=== PATIENT | male | born 1965 | race Caucasian/White ===

== ENCOUNTER 2017-08-23 04:20 | Inpatient (IN) | payer MEDICAID ==
[~2017-08-23] VITALS: Ht 177.8 cm; Wt 82.2 kg
[~2017-08-23 04:20] MED LIST: INSU100C SQ-INSULIN; INSU100C5 SQ-INSULIN; INSU300I SQ
[2017-08-23] MEDS ORDERED: SODIUM CHLORIDE FLUSH 10ML SYR IVF ONE (05:00)
[2017-08-23] MEDS ORDERED: SODIUM CHLORIDE 0.9% 1,000ML IVBOLUS ONE ×2 (05:00→06:00)
[2017-08-23 05:05] LABS: DAU SCREEN DISCLAIMER
[2017-08-23 05:14] LABS: PH, VENOUS 7.398 pH (7.320-7.420)
[2017-08-23 05:17] LABS: HEMATOCRIT 44.2 % (39.2-51.8); HEMOGLOBIN 14.3 g/dL (13.7-18.0)
[2017-08-23 05:30] LABS: BLOOD UREA NITROGEN 62 mg/dL (7-18)
[2017-08-23 05:35] LABS: ASPARTATE AMINO TRANSFERASE 14 U/L (15-37)
[2017-08-23] MEDS ORDERED: REGULAR INSULIN 62.5 UNITS in SODIUM CHLORIDE 0.9% 249.375 ML IV PRN ×2 (05:43→13:00)
[2017-08-23 06:08] LABS: IS PT STATUS REG ER OR PRE ER? YES
[2017-08-23] MEDS ORDERED: LORazepam 2 MG/ML, 1ML ONE ×2 (06:24→08:25)
[2017-08-23] MEDS ORDERED: SODIUM CHLORIDE 0.9% 1,000 ML IV ONE (07:15)
[2017-08-23] MEDS ORDERED: LORazepam 2 MG/ML, 1ML IVPush ONE ×2 (07:30→09:00)
[2017-08-23] MEDS ORDERED: SODIUM CHLORIDE FLUSH 10ML SYR IVF PRN (08:00)
[2017-08-23 08:05] LABS: BLOOD UREA NITROGEN 59 mg/dL (7-18)
[2017-08-23 08:55] LABS: PROTIME 10.5 Seconds (9.6-11.5)
[2017-08-23] MEDS ORDERED: ENOXAPARIN 40 MG/0.4 ML SQ SCH (10:30)
[2017-08-23] MEDS ORDERED: ONDANSETRON 2MG/ML, 2ML IVPush PRN (10:30)
[2017-08-23] MEDS ORDERED: POLYETHYLENE GLYCOL 17 GM PACKET PO PRN (10:30)
[2017-08-23] MEDS ORDERED: LABETALOL 5MG/ML, 20ML IVPush PRN (10:30)
[2017-08-23] MEDS ORDERED: ACETAMINOPHEN 325 MG TABLET PO PRN (10:30)
[2017-08-23] MEDS ORDERED: TEMAZEPAM 15 MG CAPSULE PO PRN (10:30)
[2017-08-23] MEDS ORDERED: ZIPRASIDONE 20 MG INJ IM ONE (10:39)
[2017-08-23] MEDS ORDERED: ENOXAPARIN 40 MG/0.4 ML ONE (10:40)
[2017-08-23] MEDS: ZIPRASIDONE 20 MG INJ IM PRN ×2 (10:51→13:57)
[2017-08-23] MEDS: SODIUM CHLORIDE 0.9% 1,000 ML IV SCH ×2 (10:52→13:21)
[2017-08-23 11:05] LABS: BLOOD UREA NITROGEN 49 mg/dL (7-18)
[2017-08-23 13:11] VITALS: BP 122/69
[2017-08-23 15:51] LABS: BLOOD UREA NITROGEN 43 mg/dL (7-18)
[2017-08-23] MEDS ORDERED: SODIUM CHLORIDE 0.45% 1,000 ML IV SCH (16:30)
[2017-08-23] MEDS: INSULIN ASPART 100 UNITS/ML, PEN SQ-INSULIN SCH ×2 (16:32→21:05)
[2017-08-23] MEDS: INSULIN DETEMIR 100 UNITS/ML, PEN SQ-INSULIN SCH (16:33)
[2017-08-23] MEDS: SODIUM CHLORIDE 0.45% 1,000 ML IV SCH ×2 (16:40→23:00)
[2017-08-23 20:44] LABS: BLOOD UREA NITROGEN 37 mg/dL (7-18)
[2017-08-24 00:49] LABS: BLOOD UREA NITROGEN 33 mg/dL (7-18)
[2017-08-24 04:20] VITALS: BP 116/66
[2017-08-24 04:59] LABS: BLOOD UREA NITROGEN 28 mg/dL (7-18)
[2017-08-24] MEDS: INSULIN DETEMIR 100 UNITS/ML, PEN SQ-INSULIN SCH (05:00)
[2017-08-24 05:10] LABS: ASPARTATE AMINO TRANSFERASE 21 U/L (15-37)
[2017-08-24] MEDS ORDERED: SODIUM PHOSPHATE 20 MMOL in SODIUM CHLORIDE 0.9% 500 ML IV ONE (07:30)
[2017-08-24] MEDS ORDERED: SENNA/DOCUSATE TABLET PO SCH (09:00)
== END 2017-08-24 06:00 | disposition left against medical advice (07) | DRG 682 ==
LOC: ED 05:38 → EDIP 07:15 → CCU 12:39
PROVIDERS: ADMIT Internal Medicine; ATTEND Internal Medicine
PROC: 02HV33Z Insertion of Infusion Device into Superior Vena Cava, Percutaneous Approach (ICD-10-PCS; principal; 2017-08-23)
PROC: B548ZZA Ultrasonography of Superior Vena Cava, Guidance (ICD-10-PCS; 2017-08-23)
PROC: 0T9B70Z Drainage of Bladder with Drainage Device, Via Natural or Artificial Opening (ICD-10-PCS; 2017-08-23)
DX: N17.9 Acute kidney failure, unspecified (principal); E11.00 Type 2 diabetes mellitus with hyperosmolarity without nonketotic hyperglycemic-hyperosmolar coma (NKHHC); G93.41 Metabolic encephalopathy; R56.9 Unspecified convulsions; R65.10 Systemic inflammatory response syndrome (SIRS) of non-infectious origin without acute organ dysfunction; E87.1 Hypo-osmolality and hyponatremia; N30.90 Cystitis, unspecified without hematuria; E87.5 Hyperkalemia; B96.20 Unspecified Escherichia coli [E. coli] as the cause of diseases classified elsewhere; R79.89 Other specified abnormal findings of blood chemistry; F17.200 Nicotine dependence, unspecified, uncomplicated; F19.959 Other psychoactive substance use, unspecified with psychoactive substance-induced psychotic disorder, unspecified; Z78.1 Physical restraint status; Z88.0 Allergy status to penicillin; Z79.4 Long term (current) use of insulin
CPT/HCPCS: 36415; 70450; 71010; 74022; 74176; 80048; 80053; 80061; 80307; 81001; 82010; 82040; 82140; 82550; 82803; 82962; 83036; 83605; 83690; 83735; 83930; 84100; 84145; 84443; 84484; 85025; 85049; 85379; 85384; 85610; 85730; 87040; 87077; 87081; 87086; 87186; 93005; 96361; 96372; 96374; 96375; J1650; J1815; J3486; G0479; J2060; J7030

== ENCOUNTER 2017-09-17 11:59 | Inpatient (IN) | payer MEDICAID ==
[~2017-09-17] VITALS: Ht 177.8 cm; Wt 80.6 kg
[2017-09-17] MEDS ORDERED: NALOXONE 1 MG/ML, 2ML IVPush ONE (12:30)
[2017-09-17] MEDS ORDERED: SODIUM CHLORIDE 0.9% 1,000ML IVBOLUS ONE (12:30)
[2017-09-17] MEDS ORDERED: LORazepam 2 MG/ML, 1ML ONE (12:47)
[2017-09-17 12:52] LABS: HEMATOCRIT 42.2 % (39.2-51.8); HEMOGLOBIN 14.3 g/dL (13.7-18.0); WHITE BLOOD COUNT 16.6 x10^3/uL (3.4-10)
[2017-09-17] MEDS ORDERED: LORazepam 2 MG/ML, 1ML IVPush ONE (13:00)
[2017-09-17 13:02] LABS: ASPARTATE AMINO TRANSFERASE 22 U/L (15-37); BLOOD UREA NITROGEN 19 mg/dL (7-18)
[2017-09-17 13:05] LABS: ACETAMINOPHEN < 2 mcg/mL (10-30)
[2017-09-17] MEDS: SODIUM CHLORIDE 0.9% 1,000 ML IV ONE ×2 (14:00→14:43)
[2017-09-17] MEDS: PROPOFOL 100 ML IV PRN ×2 (14:45→19:04)
[2017-09-17 15:24] LABS: ABG COLLECTION SITE LEFT RADIAL; COLLATERAL CIRCULATION TESTING NORMAL
[2017-09-17] MEDS ORDERED: SODIUM CHLORIDE 0.9% 1,000 ML IV SCH (15:30)
[2017-09-17] MEDS: ALBUTEROL/IPRATROPIUM 2.5MG/0.5MG, 3 ML INLINE SCH ×3 (15:30→21:50)
[2017-09-17] MEDS ORDERED: PHARMACY MAY ADJ FOR RENAL FX MC SCH (15:30)
[2017-09-17] MEDS ORDERED: ACETAMINOPHEN 650 MG/20.3 ML UDC NG PRN (15:30)
[2017-09-17] MEDS ORDERED: LIDOCAINE-MPF 1%, 2ML ENDO PRN (15:30)
[2017-09-17 15:35] LABS: DAU SCREEN DISCLAIMER
[2017-09-17] MEDS ORDERED: ACETAMINOPHEN 650 MG SUPP ONE (15:35)
[2017-09-17] MEDS ORDERED: ACETAMINOPHEN 650 MG SUPP PR ONE (16:00)
[2017-09-17] MEDS ORDERED: PROPOFOL 10 MG/ML, 100ML IV ONE (16:00)
[2017-09-17] MEDS ORDERED: ONDANSETRON 2MG/ML, 2ML IVPush PRN (16:00)
[2017-09-17] MEDS ORDERED: SUCCINYLCHOLINE 20 MG/ML, 10ML ONE (16:00)
[2017-09-17] MEDS ORDERED: ETOMIDATE 20 MG/10 ML ONE (16:00)
[2017-09-17] MEDS ORDERED: CEFTRIAXONE PMX 1GM/50ML 50 ML ONE (16:25)
[2017-09-17] MEDS: CEFTRIAXONE PMX 1GM/50ML 50 ML IV SCH (16:29)
[2017-09-17] MEDS ORDERED: PROPOFOL 100 ML IV PRN (16:30)
[2017-09-17] MEDS ORDERED: LEVETIRACETAM 500 MG TABLET PO ONE (16:30)
[2017-09-17] MEDS ORDERED: DEXTROSE 50%, 50ML VIAL ONE ×3 (16:59→19:54)
[2017-09-17] MEDS: DEXTROSE 50%, 50ML SYRINGE IVPush PRN ×6 (17:15→23:58)
[2017-09-17] MEDS: LEVETIRACETAM 1,000 MG in SODIUM CHLORIDE 0.9% 100 ML IV SCH (17:30)
[2017-09-17] MEDS ORDERED: GLUCAGON 1 MG IM PRN (17:30)
[2017-09-17] MEDS ORDERED: DEXTROSE 4 GM TAB.CHEW PO PRN (17:30)
[2017-09-17] MEDS ORDERED: LEVETIRACETAM 1,000 MG in SODIUM CHLORIDE 0.9% 100 ML IV ONE (17:30)
[2017-09-17] MEDS: DOXYCYCLINE 100 MG in DEXTROSE 5% 250 ML IV SCH (17:51)
[2017-09-17] MEDS ORDERED: VANCOMYCIN PER PHARMACY MC PRN (18:00)
[2017-09-17 18:23] LABS: ABG COLLECTION SITE RIGHT BRACHIAL
[2017-09-17] MEDS ORDERED: PHARMACOKINETIC MONITORING MC PRN (18:30)
[2017-09-17] MEDS ORDERED: PHARMACOKINETIC CONSULTATION MC ONE (18:30)
[2017-09-17] MEDS: VANCOMYCIN 1,700 MG in SODIUM CHLORIDE 0.9% 250 ML IV SCH (20:21)
[2017-09-17] MEDS ORDERED: D5%-0.9% NACL 1,000 ML IV SCH (20:30)
[2017-09-17] MEDS: SODIUM CHLORIDE FLUSH 10ML SYR IVF SCH (20:32)
[2017-09-17] MEDS ORDERED: SODIUM CHLORIDE IV SCH (21:30)
[2017-09-17] MEDS ORDERED: DEXTROSE IV SCH (21:30)
[2017-09-18] MEDS: PROPOFOL 100 ML IV PRN ×5 (00:12→22:07)
[2017-09-18] MEDS: ALBUTEROL/IPRATROPIUM 2.5MG/0.5MG, 3 ML INLINE SCH ×6 (01:56→21:15)
[2017-09-18] MEDS: DEXTROSE 50%, 50ML SYRINGE IVPush PRN ×4 (02:06→22:39)
[2017-09-18] MEDS: DOXYCYCLINE 100 MG in DEXTROSE 5% 250 ML IV SCH ×2 (03:44→16:36)
[2017-09-18 04:00] VITALS: BP 100/62
[2017-09-18 04:36] LABS: ABG COLLECTION SITE LEFT RADIAL; COLLATERAL CIRCULATION TESTING NORMAL
[2017-09-18] MEDS: LEVETIRACETAM 1,000 MG in SODIUM CHLORIDE 0.9% 100 ML IV SCH ×2 (04:50→18:06)
[2017-09-18 04:51] LABS: ASPARTATE AMINO TRANSFERASE 36 U/L (15-37); BLOOD UREA NITROGEN 13 mg/dL (7-18)
[2017-09-18 05:05] LABS: HEMATOCRIT 37.4 % (39.2-51.8); HEMOGLOBIN 12.6 g/dL (13.7-18.0); WHITE BLOOD COUNT 11.3 x10^3/uL (3.4-10)
[2017-09-18] MEDS ORDERED: MAGNESIUM SULFATE 4 GM in SODIUM CHLORIDE 0.9% 100 ML IV ONE (06:30)
[2017-09-18] MEDS ORDERED: POTASSIUM CHLORIDE 40 MEQ in SODIUM CHLORIDE 0.9% 500 ML IV ONE (06:30)
[2017-09-18 06:33] VITALS: BP 128/69
[2017-09-18] MEDS ORDERED: POTASSIUM CHLORIDE 20 MEQ TAB.ER.PRT PO SCH (08:00)
[2017-09-18] MEDS ORDERED: VECURONIUM 10 MG IV PRN (08:30)
[2017-09-18] MEDS: PANTOPRAZOLE 40 MG IV IV SCH (09:34)
[2017-09-18] MEDS: SODIUM CHLORIDE FLUSH 10ML SYR IVF SCH ×2 (09:34→21:37)
[2017-09-18] MEDS: POTASSIUM CHLORIDE 10% 40 MEQ/30 ML UDC PO SCH ×2 (09:34→21:37)
[2017-09-18] MEDS: SODIUM CHLORIDE IV SCH ×2 (10:29→21:40)
[2017-09-18] MEDS: DEXTROSE IV SCH ×2 (10:29→21:40)
[2017-09-18] MEDS ORDERED: GADOBUTROL 7.5 MMOL/7.5 ML PFS ONE (12:28)
[2017-09-18] MEDS: VANCOMYCIN 1,700 MG in SODIUM CHLORIDE 0.9% 250 ML IV SCH (13:55)
[2017-09-18] MEDS: CEFTRIAXONE PMX 1GM/50ML 50 ML IV SCH (15:39)
[2017-09-18] MEDS ORDERED: SODIUM CHLORIDE IV SCH (21:30)
[2017-09-18] MEDS ORDERED: DEXTROSE IV SCH (21:30)
[2017-09-19] MEDS: PROPOFOL 100 ML IV PRN ×6 (01:18→23:44)
[2017-09-19] MEDS: ALBUTEROL/IPRATROPIUM 2.5MG/0.5MG, 3 ML INLINE SCH ×6 (02:00→22:00)
[2017-09-19] MEDS: DOXYCYCLINE 100 MG in DEXTROSE 5% 250 ML IV SCH ×2 (04:27→15:51)
[2017-09-19 04:44] LABS: ABG COLLECTION SITE RIGHT RADIAL; COLLATERAL CIRCULATION TESTING NORMAL
[2017-09-19 04:57] LABS: BLOOD UREA NITROGEN 7 mg/dL (7-18)
[2017-09-19 05:38] VITALS: BP 121/62
[2017-09-19] MEDS: LEVETIRACETAM 1,000 MG in SODIUM CHLORIDE 0.9% 100 ML IV SCH ×2 (05:52→18:40)
[2017-09-19 08:13] LABS: BLOOD UREA NITROGEN 6 mg/dL (7-18)
[2017-09-19] MEDS: VANCOMYCIN 1,700 MG in SODIUM CHLORIDE 0.9% 250 ML IV SCH (08:36)
[2017-09-19] MEDS: PANTOPRAZOLE 40 MG IV IV SCH (08:36)
[2017-09-19] MEDS: POTASSIUM CHLORIDE 10% 40 MEQ/30 ML UDC PO SCH ×2 (08:37→21:14)
[2017-09-19] MEDS: SODIUM CHLORIDE FLUSH 10ML SYR IVF SCH ×2 (08:37→21:14)
[2017-09-19] MEDS: DEXTROSE IV SCH ×2 (08:38→19:39)
[2017-09-19] MEDS: SODIUM CHLORIDE IV SCH ×2 (08:38→19:39)
[2017-09-19] MEDS: CEFTRIAXONE PMX 1GM/50ML 50 ML IV SCH (15:52)
[2017-09-19] MEDS: THIAMINE 100 MG in SODIUM CHLORIDE 0.9% 50 ML IV SCH (18:17)
[2017-09-20] MEDS: ALBUTEROL/IPRATROPIUM 2.5MG/0.5MG, 3 ML INLINE SCH ×6 (02:00→22:45)
[2017-09-20] MEDS: PROPOFOL 100 ML IV PRN ×5 (03:10→22:39)
[2017-09-20 04:00] VITALS: BP 98/52
[2017-09-20] MEDS: DEXTROSE IV SCH ×2 (04:24→13:30)
[2017-09-20] MEDS: SODIUM CHLORIDE IV SCH ×2 (04:24→13:30)
[2017-09-20] MEDS: DOXYCYCLINE 100 MG in DEXTROSE 5% 250 ML IV SCH ×2 (04:25→16:46)
[2017-09-20 04:31] LABS: HEMATOCRIT 29.9 % (39.2-51.8); HEMOGLOBIN 10.1 g/dL (13.7-18.0); WHITE BLOOD COUNT 10.9 x10^3/uL (3.4-10)
[2017-09-20 04:34] LABS: ABG COLLECTION SITE LEFT RADIAL; COLLATERAL CIRCULATION TESTING NORMAL
[2017-09-20 04:42] LABS: BLOOD UREA NITROGEN 7 mg/dL (7-18)
[2017-09-20 04:46] LABS: ASPARTATE AMINO TRANSFERASE 12 U/L (15-37)
[2017-09-20] MEDS: LEVETIRACETAM 1,000 MG in SODIUM CHLORIDE 0.9% 100 ML IV SCH ×2 (05:46→18:21)
[2017-09-20] MEDS ORDERED: BISACODYL 10 MG SUPP PR PRN (08:30)
[2017-09-20] MEDS ORDERED: LACTULOSE 20 GM/30 ML UDC PO PRN (08:30)
[2017-09-20] MEDS: PANTOPRAZOLE 40 MG IV IV SCH (09:43)
[2017-09-20] MEDS: POTASSIUM CHLORIDE 10% 40 MEQ/30 ML UDC PO SCH ×2 (09:43→20:30)
[2017-09-20] MEDS: DOCUSATE 50 MG/5 ML, 10ML UDC NG SCH (09:45)
[2017-09-20] MEDS: SODIUM CHLORIDE FLUSH 10ML SYR IVF SCH ×2 (09:45→20:30)
[2017-09-20] MEDS ORDERED: SODIUM CHLORIDE 0.9% 1,000ML IVBOLUS ONE (12:30)
[2017-09-20] MEDS: THIAMINE 100 MG in SODIUM CHLORIDE 0.9% 50 ML IV SCH (14:14)
[2017-09-20] MEDS: CEFTRIAXONE PMX 1GM/50ML 50 ML IV SCH (15:59)
[2017-09-20] MEDS: INSULIN ASPART 100 UNITS/ML, PEN SQ-INSULIN SCH ×2 (16:21→20:33)
[2017-09-20] MEDS ORDERED: SODIUM CHLORIDE 0.9% 500 ML IV SCH (19:30)
[2017-09-20] MEDS: SENNOSIDES 8.8 MG/5 ML ORAL SOL NG SCH (20:30)
[2017-09-20] MEDS: SENNA/DOCUSATE TABLET PO SCH (20:31)
[2017-09-21] MEDS: ALBUTEROL/IPRATROPIUM 2.5MG/0.5MG, 3 ML INLINE SCH ×2 (02:10→07:10)
[2017-09-21] MEDS: PROPOFOL 100 ML IV PRN ×2 (02:30→06:12)
[2017-09-21 04:05] VITALS: BP 102/59
[2017-09-21] MEDS: DOXYCYCLINE 100 MG in DEXTROSE 5% 250 ML IV SCH ×2 (04:09→17:08)
[2017-09-21 04:49] LABS: ABG COLLECTION SITE RIGHT RADIAL; COLLATERAL CIRCULATION TESTING NORMAL
[2017-09-21 04:55] LABS: HEMATOCRIT 30.6 % (39.2-51.8); HEMOGLOBIN 10.3 g/dL (13.7-18.0); WHITE BLOOD COUNT 7.3 x10^3/uL (3.4-10)
[2017-09-21 05:03] LABS: BLOOD UREA NITROGEN 9 mg/dL (7-18)
[2017-09-21] MEDS: LEVETIRACETAM 1,000 MG in SODIUM CHLORIDE 0.9% 100 ML IV SCH ×2 (05:31→18:31)
[2017-09-21] MEDS: INSULIN ASPART 100 UNITS/ML, PEN SQ-INSULIN SCH ×4 (05:39→20:49)
[2017-09-21] MEDS: POTASSIUM CHLORIDE 10% 40 MEQ/30 ML UDC PO SCH (08:06)
[2017-09-21] MEDS: SODIUM CHLORIDE FLUSH 10ML SYR IVF SCH ×2 (08:06→20:46)
[2017-09-21] MEDS: DOCUSATE 50 MG/5 ML, 10ML UDC NG SCH (08:06)
[2017-09-21] MEDS: PANTOPRAZOLE 40 MG IV IV SCH (08:06)
[2017-09-21] MEDS: THIAMINE 100 MG in SODIUM CHLORIDE 0.9% 50 ML IV SCH (14:25)
[2017-09-21] MEDS: CEFTRIAXONE PMX 1GM/50ML 50 ML IV SCH (16:43)
[2017-09-21] MEDS: SENNOSIDES 8.8 MG/5 ML ORAL SOL NG SCH (20:41)
[2017-09-21] MEDS: SENNA/DOCUSATE TABLET PO SCH (20:41)
[2017-09-22] MEDS: DOXYCYCLINE 100 MG in DEXTROSE 5% 250 ML IV SCH ×2 (03:24→16:15)
[2017-09-22 04:02] VITALS: BP 120/72
[2017-09-22 04:24] LABS: ABG COLLECTION SITE RIGHT RADIAL; COLLATERAL CIRCULATION TESTING NORMAL
[2017-09-22 04:30] LABS: HEMATOCRIT 31.1 % (39.2-51.8); HEMOGLOBIN 10.6 g/dL (13.7-18.0); WHITE BLOOD COUNT 6.9 x10^3/uL (3.4-10)
[2017-09-22 04:44] LABS: BLOOD UREA NITROGEN 8 mg/dL (7-18)
[2017-09-22] MEDS: LEVETIRACETAM 1,000 MG in SODIUM CHLORIDE 0.9% 100 ML IV SCH ×2 (05:33→17:45)
[2017-09-22] MEDS: INSULIN ASPART 100 UNITS/ML, PEN SQ-INSULIN SCH ×4 (05:35→20:53)
[2017-09-22] MEDS: PANTOPRAZOLE 40 MG IV IV SCH (07:45)
[2017-09-22] MEDS: DOCUSATE 50 MG/5 ML, 10ML UDC NG SCH (07:45)
[2017-09-22] MEDS: SODIUM CHLORIDE FLUSH 10ML SYR IVF SCH ×2 (07:45→20:37)
[2017-09-22] MEDS ORDERED: MAGNESIUM SULFATE PMX 4GM/100M 100 ML IV ONE (10:00)
[2017-09-22] MEDS: THIAMINE 100 MG in SODIUM CHLORIDE 0.9% 50 ML IV SCH (15:32)
[2017-09-22] MEDS ORDERED: PHARMACY MAY ADJ FOR RENAL FX MC SCH (16:00)
[2017-09-22] MEDS ORDERED: ONDANSETRON 2MG/ML, 2ML IVPush PRN (16:00)
[2017-09-22] MEDS ORDERED: GLUCAGON 1 MG IM PRN (16:00)
[2017-09-22] MEDS ORDERED: DEXTROSE 4 GM TAB.CHEW PO PRN (16:00)
[2017-09-22] MEDS ORDERED: ACETAMINOPHEN 650 MG/20.3 ML UDC NG PRN (16:00)
[2017-09-22] MEDS ORDERED: DEXTROSE 50%, 50ML SYRINGE IVPush PRN (16:00)
[2017-09-22 20:00] VITALS: BP 106/67
[2017-09-23 02:00] VITALS: BP 95/48
[2017-09-23] MEDS: DOXYCYCLINE 100 MG in DEXTROSE 5% 250 ML IV SCH ×2 (04:49→17:04)
[2017-09-23 05:36] LABS: HEMATOCRIT 29.7 % (39.2-51.8); HEMOGLOBIN 10.2 g/dL (13.7-18.0); WHITE BLOOD COUNT 8.1 x10^3/uL (3.4-10)
[2017-09-23 05:47] LABS: BLOOD UREA NITROGEN 9 mg/dL (7-18)
[2017-09-23] MEDS: LEVETIRACETAM 1,000 MG in SODIUM CHLORIDE 0.9% 100 ML IV SCH ×2 (05:51→17:04)
[2017-09-23 06:37] VITALS: BP 126/76
[2017-09-23] MEDS: PANTOPRAZOLE 40 MG IV IV SCH (07:54)
[2017-09-23] MEDS: INSULIN ASPART 100 UNITS/ML, PEN SQ-INSULIN SCH ×4 (07:54→20:45)
[2017-09-23] MEDS: DOCUSATE 50 MG/5 ML, 10ML UDC NG SCH (07:54)
[2017-09-23] MEDS: SODIUM CHLORIDE FLUSH 10ML SYR IVF SCH ×2 (07:54→20:47)
[2017-09-23] MEDS ORDERED: ARTIFICIAL TEARS OPHTH SOLN 15ML EACHEYE PRN (12:00)
[2017-09-23] MEDS: THIAMINE 100 MG in SODIUM CHLORIDE 0.9% 50 ML IV SCH (14:35)
[2017-09-23 15:51] VITALS: BP 113/71
[2017-09-23 20:12] VITALS: BP 128/79
[2017-09-24 03:04] VITALS: BP 127/74
[2017-09-24] MEDS: DOXYCYCLINE 100 MG in DEXTROSE 5% 250 ML IV SCH (04:11)
[2017-09-24 05:33] LABS: HEMATOCRIT 31.3 % (39.2-51.8); HEMOGLOBIN 10.6 g/dL (13.7-18.0); WHITE BLOOD COUNT 8.4 x10^3/uL (3.4-10)
[2017-09-24 05:51] LABS: BLOOD UREA NITROGEN 6 mg/dL (7-18)
[2017-09-24] MEDS: LEVETIRACETAM 1,000 MG in SODIUM CHLORIDE 0.9% 100 ML IV SCH (06:22)
[2017-09-24] MEDS: DOCUSATE 50 MG/5 ML, 10ML UDC NG SCH (07:34)
[2017-09-24] MEDS: PANTOPRAZOLE 40 MG IV IV SCH (07:34)
[2017-09-24] MEDS: INSULIN ASPART 100 UNITS/ML, PEN SQ-INSULIN SCH ×3 (07:34→16:00)
[2017-09-24] MEDS: SODIUM CHLORIDE FLUSH 10ML SYR IVF SCH (07:34)
[2017-09-24 07:59] VITALS: BP 123/72
[2017-09-24 13:53] VITALS: BP 125/81
[2017-09-24] MEDS: THIAMINE 100 MG in SODIUM CHLORIDE 0.9% 50 ML IV SCH (14:45)
[2017-09-24] MEDS ORDERED: INSU300I SQ (15:48)
== END 2017-09-24 16:44 | disposition home or self-care (01) | DRG 870 ==
LOC: ED 13:00 → EDIP 14:50 → CCU 16:40 → 3NE 09-22 19:56
PROVIDERS: ADMIT Internal Medicine; ATTEND Internal Medicine
PROC: 5A1955Z Respiratory Ventilation, Greater than 96 Consecutive Hours (ICD-10-PCS; principal; 2017-09-17)
PROC: 0BH17EZ Insertion of Endotracheal Airway into Trachea, Via Natural or Artificial Opening (ICD-10-PCS; 2017-09-17)
DX: A41.9 Sepsis, unspecified organism (principal); J96.00 Acute respiratory failure, unspecified whether with hypoxia or hypercapnia; G93.41 Metabolic encephalopathy; I62.01 Nontraumatic acute subdural hemorrhage; J18.9 Pneumonia, unspecified organism; I62.03 Nontraumatic chronic subdural hemorrhage; E87.1 Hypo-osmolality and hyponatremia; N39.0 Urinary tract infection, site not specified; E11.22 Type 2 diabetes mellitus with diabetic chronic kidney disease; E11.649 Type 2 diabetes mellitus with hypoglycemia without coma; J06.9 Acute upper respiratory infection, unspecified; N18.9 Chronic kidney disease, unspecified; D18.1 Lymphangioma, any site; F17.200 Nicotine dependence, unspecified, uncomplicated; F15.10 Other stimulant abuse, uncomplicated; Z79.4 Long term (current) use of insulin; Z91.14 Patient's other noncompliance with medication regimen
CPT/HCPCS: 36415; 36600; 70450; 70553; 71010; 74000; 80048; 80053; 80307; 80329; 81001; 82140; 82803; 82962; 83605; 83735; 84100; 84478; 85025; 87040; 87070; 87077; 87081; 87086; 87186; 87205; 93005; 94002; 94003; 94150; 94640; 99291; A9585; J0696; J1815; J1953; J2704; J3370; J3411; J3475; J3480; J3490; J7042; J7060; J7620; C9113; G0479; G0480; J0330; J2060; J2310; J7030; J7040; J7050

== ENCOUNTER → 2017-11-12 | Outpatient (CLI) | payer MEDICAID ==
[~2017-11-12] MED LIST changes: +REGADENOSON 0.4 MG/5 ML SYRINGE ONE
== END | disposition home or self-care (01) ==
LOC: CFH 08:05
PROVIDERS: ATTEND Internal Medicine Cardiovascular Disease
DX: I42.9 Cardiomyopathy, unspecified (principal); E11.9 Type 2 diabetes mellitus without complications
CPT/HCPCS: 78452; 93017; A9502; J2785

== ENCOUNTER 2018-01-29 16:07 | Inpatient (IN) | payer MEDICAID ==
[~2018-01-29] VITALS: Ht 175.3 cm; Wt 79.7 kg
[~2018-01-29 16:07] MED LIST changes: -REGADENOSON 0.4 MG/5 ML SYRINGE ONE
[2018-01-29] MEDS ORDERED: ONDANSETRON 2MG/ML, 2ML ONE (16:49)
[2018-01-29] MEDS ORDERED: MORPHINE SULFATE 4 MG/ML, 1ML ONE ×2 (16:49→18:28)
[2018-01-29] MEDS ORDERED: FAMOTIDINE 20 MG/2 ML ONE (16:49)
[2018-01-29] MEDS ORDERED: ONDANSETRON 2MG/ML, 2ML IVPush ONE (17:00)
[2018-01-29] MEDS ORDERED: FAMOTIDINE 20 MG/2 ML IVP ONE (17:00)
[2018-01-29] MEDS ORDERED: SODIUM CHLORIDE 0.9% 1,000ML IVBOLUS ONE ×2 (17:00→20:00)
[2018-01-29] MEDS: MORPHINE SULFATE 4 MG/ML, 1ML IVPush PRN ×2 (17:05→18:32)
[2018-01-29 17:18] LABS: PH, VENOUS 7.415 pH (7.320-7.420)
[2018-01-29 17:27] LABS: MEAN CORPUSCULAR HEMOGLOBIN 28.4 pg (27.5-34.5); MEAN CORPUSCULAR VOLUME 83.7 fL (81-97); MEAN PLATELET VOLUME 7.5 fL (7.4-10.4); PLATELET COUNT 458 x10^3/uL (130-400); RED BLOOD COUNT 5.13 x10^6/uL (4.38-5.82); RED CELL DISTRIBUTION WIDTH 13.5 % (9.4-14.8)
[2018-01-29 17:32] LABS: ALANINE AMINOTRANSFERASE 12 U/L (12-78); ALBUMIN 3.7 g/dL (3.4-5.0); ANION GAP 10 mmol/L (5-15); CALCIUM 9.2 mg/dL (8.5-10.1); CHLORIDE 92 mmol/L (98-107); CREATININE 1.76 mg/dL (0.7-1.3)
[2018-01-29 17:33] LABS: CULTURE INDICATED? YES; MICROSCOPIC INDICATED
[2018-01-29 17:35] LABS: ALKALINE PHOSPHATASE 89 U/L (45-117); BILIRUBIN,TOTAL 0.5 mg/dL (0.2-1.0); TOTAL PROTEIN 7.9 g/dL (6.4-8.2)
[2018-01-29 17:57] LABS: ACETONE, SERUM Negative (Negative)
[2018-01-29 18:04] LABS: BASOPHILS % (AUTO) 0 % (0-1); EOSINOPHILS # (AUTO) 0.06 x10^3/uL (0-0.4); EOSINOPHILS % (AUTO) 0 % (1-7); LYMPHOCYTES # (AUTO) 0.97 x10^3/uL (1-3.4); LYMPHOCYTES % (AUTO) 4 % (22-44); MD MORPH REVIEW ONLY; MONOCYTES # (AUTO) 0.04 x10^3/uL (0.2-0.8); MONOCYTES % (AUTO) 0 % (2-9); NEUTROPHILS # (AUTO) 22.58 x10^3/uL (1.8-6.8); NEUTROPHILS % (AUTO) 95 % (42-75)
[2018-01-29 18:05] LABS: <PLATELET ESTIMATE> INCREASED; <PLT MORPHOLOGY> NORMAL PLT MORPH; <RBC MORPHOLOGY> NORMAL
[2018-01-29] MEDS ORDERED: CEFTRIAXONE PMX 1GM/50ML 50 ML IV ONE (19:30)
[2018-01-29] MEDS ORDERED: VARE1TAB20 PO (19:49)
[2018-01-29] MEDS ORDERED: INSULIN REGULAR 100 UNITS/ML, 3ML VIAL ONE (19:53)
[2018-01-29] MEDS ORDERED: CEFTRIAXONE PMX 1GM/50ML 50 ML ONE (19:59)
[2018-01-29] MEDS ORDERED: INSULIN REGULAR 100 UNITS/ML, 3ML VIAL SQ-INSULIN ONE (20:00)
[2018-01-29] MEDS ORDERED: VANCOMYCIN 1,500 MG in SODIUM CHLORIDE 0.9% 250 ML IV ONE (20:30)
[2018-01-29] MEDS ORDERED: VANCOMYCIN PER PHARMACY MC ONE (20:30)
[2018-01-29] MEDS ORDERED: SODIUM CHLORIDE 0.9% 1,000 ML IV ONE (20:45)
[2018-01-29] MEDS ORDERED: SODIUM CHLORIDE FLUSH 10ML SYR IVF PRN (21:00)
[2018-01-29] MEDS: SODIUM CHLORIDE 0.9% 1,000 ML IV SCH (21:08)
[2018-01-29] MEDS ORDERED: ENALAPRILAT 1.25 MG/ML, 2ML IVPush PRN (21:30)
[2018-01-29] MEDS ORDERED: VANCOMYCIN PER PHARMACY MC PRN (21:30)
[2018-01-29] MEDS ORDERED: TEMAZEPAM 15 MG CAPSULE PO PRN (21:30)
[2018-01-29] MEDS ORDERED: ACETAMINOPHEN 325 MG TABLET PO PRN (21:30)
[2018-01-29] MEDS ORDERED: DOCUSATE 100 MG CAPSULE PO PRN (21:30)
[2018-01-29 22:18] VITALS: BP 115/74
[2018-01-29] MEDS ORDERED: INSULIN GLARGINE 100 UNITS/ML, PEN SQ-INSULIN SCH (22:30)
[2018-01-29] MEDS: INSULIN GLARGINE 100 UNITS/ML, PEN SQ-INSULIN SCH (22:30)
[2018-01-29] MEDS ORDERED: PHARMACOKINETIC MONITORING MC PRN (22:30)
[2018-01-29] MEDS ORDERED: PHARMACOKINETIC CONSULTATION MC ONE (22:30)
[2018-01-30 01:30] VITALS: BP 144/79
[2018-01-30 05:16] LABS: MEAN CORPUSCULAR HEMOGLOBIN 28.4 pg (27.5-34.5); MEAN CORPUSCULAR HGB CONC 33.7 g/dL (33.2-36.2); MEAN CORPUSCULAR VOLUME 84.3 fL (81-97); MEAN PLATELET VOLUME 7.5 fL (7.4-10.4); PLATELET COUNT 362 x10^3/uL (130-400); RED BLOOD COUNT 4.46 x10^6/uL (4.38-5.82); RED CELL DISTRIBUTION WIDTH 13.5 % (9.4-14.8)
[2018-01-30 05:21] LABS: ANION GAP 8 mmol/L (5-15); CALCIUM 8.3 mg/dL (8.5-10.1); CHLORIDE 101 mmol/L (98-107)
[2018-01-30 05:22] LABS: CREATININE 1.46 mg/dL (0.7-1.3)
[2018-01-30 05:47] LABS: BASOPHILS # (AUTO) 0.02 x10^3/uL (0-0.1); BASOPHILS % (AUTO) 0 % (0-1); EOSINOPHILS # (AUTO) 0.06 x10^3/uL (0-0.4); EOSINOPHILS % (AUTO) 0 % (1-7); LYMPHOCYTES # (AUTO) 1.47 x10^3/uL (1-3.4); LYMPHOCYTES % (AUTO) 8 % (22-44); MD SCAN; MONOCYTES # (AUTO) 1.07 x10^3/uL (0.2-0.8); MONOCYTES % (AUTO) 6 % (2-9); NEUTROPHILS # (AUTO) 15.77 x10^3/uL (1.8-6.8); NEUTROPHILS % (AUTO) 86 % (42-75)
[2018-01-30] MEDS ORDERED: CEFTRIAXONE PMX 1GM/50ML 50 ML IV SCH (07:30)
[2018-01-30] MEDS: VARENICLINE TARTRATE 0.5 MG HOMEMEDPO SCH (07:50)
[2018-01-30] MEDS: SODIUM CHLORIDE 0.9% 1,000 ML IV SCH ×2 (07:57→17:25)
[2018-01-30 08:30] VITALS: BP 105/67
[2018-01-30] MEDS: INSULIN LISPRO 100 UNITS/ML, PEN SQ-INSULIN SCH ×4 (08:49→21:59)
[2018-01-30] MEDS ORDERED: VARENICLINE TARTRATE HOMEMEDPO SCH (09:00)
[2018-01-30 14:30] VITALS: BP 106/71
[2018-01-30] MEDS ORDERED: MORPHINE SULFATE 4 MG/ML, 1ML ONE (15:53)
[2018-01-30] MEDS ORDERED: MORPHINE SULFATE 4 MG/ML, 1ML IVPush PRN (16:00)
[2018-01-30] MEDS: ONDANSETRON ODT 4 MG PO PRN (16:01)
[2018-01-30] MEDS ORDERED: VANCOMYCIN 1,500 MG in SODIUM CHLORIDE 0.9% 250 ML IV SCH ×2 (17:00→20:30)
[2018-01-30] MEDS ORDERED: CEFTRIAXONE 1,000 MG in SODIUM CHLORIDE 0.9% 50 ML IV SCH (19:30)
[2018-01-30 19:52] VITALS: BP 123/74
[2018-01-30] MEDS ORDERED: INSULIN GLARGINE 100 UNITS/ML, PEN SQ-INSULIN SCH (21:00)
[2018-01-30] MEDS: INSULIN GLARGINE 100 UNITS/ML, PEN SQ-INSULIN SCH (21:59)
[2018-01-31 01:08] VITALS: BP 112/70
[2018-01-31] MEDS: SODIUM CHLORIDE 0.9% 1,000 ML IV SCH ×4 (02:00→23:15)
[2018-01-31 04:45] LABS: ANION GAP 7 mmol/L (5-15); CALCIUM 7.5 mg/dL (8.5-10.1); CHLORIDE 102 mmol/L (98-107); CREATININE 1.25 mg/dL (0.7-1.3)
[2018-01-31 04:54] LABS: BASOPHILS # (AUTO) 0.02 x10^3/uL (0-0.1); BASOPHILS % (AUTO) 0 % (0-1); EOSINOPHILS # (AUTO) 0.11 x10^3/uL (0-0.4); EOSINOPHILS % (AUTO) 1 % (1-7); LYMPHOCYTES # (AUTO) 1.32 x10^3/uL (1-3.4); LYMPHOCYTES % (AUTO) 12 % (22-44); MD NO; MEAN CORPUSCULAR HEMOGLOBIN 28.6 pg (27.5-34.5); MEAN CORPUSCULAR HGB CONC 34.2 g/dL (33.2-36.2); MEAN CORPUSCULAR VOLUME 83.7 fL (81-97); MEAN PLATELET VOLUME 7.6 fL (7.4-10.4); MONOCYTES # (AUTO) 0.74 x10^3/uL (0.2-0.8); MONOCYTES % (AUTO) 7 % (2-9); NEUTROPHILS # (AUTO) 9.12 x10^3/uL (1.8-6.8); NEUTROPHILS % (AUTO) 81 % (42-75); PLATELET COUNT 264 x10^3/uL (130-400); RED BLOOD COUNT 3.66 x10^6/uL (4.38-5.82); RED CELL DISTRIBUTION WIDTH 13.4 % (9.4-14.8)
[2018-01-31] MEDS ORDERED: MEROPENEM 1 GM in SODIUM CHLORIDE 0.9% 100 ML IV SCH (07:00)
[2018-01-31 07:54] VITALS: BP 94/57
[2018-01-31] MEDS: VARENICLINE TARTRATE 0.5 MG HOMEMEDPO SCH (08:12)
[2018-01-31] MEDS: INSULIN LISPRO 100 UNITS/ML, PEN SQ-INSULIN SCH ×4 (08:19→20:02)
[2018-01-31] MEDS: TAMSULOSIN 0.4 MG CAP.ER.24H PO SCH (08:19)
[2018-01-31 14:00] VITALS: BP 104/65
[2018-01-31] MEDS ORDERED: CEFTRIAXONE PMX 2GM/50ML 50 ML IV SCH (14:00)
[2018-01-31] MEDS: CEFTRIAXONE 2,000 MG in SODIUM CHLORIDE 0.9% 50 ML IV SCH (14:42)
[2018-01-31] MEDS: ONDANSETRON ODT 4 MG PO PRN (17:05)
[2018-01-31 18:48] VITALS: BP 115/71
[2018-01-31] MEDS: INSULIN GLARGINE 100 UNITS/ML, PEN SQ-INSULIN SCH (20:01)
[2018-02-01 01:12] VITALS: BP 115/72
[2018-02-01] MEDS: SODIUM CHLORIDE 0.9% 1,000 ML IV SCH (06:35)
[2018-02-01] MEDS: INSULIN LISPRO 100 UNITS/ML, PEN SQ-INSULIN SCH ×2 (07:00→11:31)
[2018-02-01] MEDS: VARENICLINE TARTRATE 0.5 MG HOMEMEDPO SCH (08:36)
[2018-02-01] MEDS: TAMSULOSIN 0.4 MG CAP.ER.24H PO SCH (08:36)
[2018-02-01 08:38] VITALS: BP 132/71
[2018-02-01 13:18] VITALS: BP 125/69
[2018-02-01] MEDS: CEFTRIAXONE 2,000 MG in SODIUM CHLORIDE 0.9% 50 ML IV SCH (14:10)
[2018-02-01] MEDS ORDERED: CEFD300C37 PO (14:17)
[2018-02-01] MEDS ORDERED: TAMS-11 PO (14:17)
== END 2018-02-01 17:20 | disposition home or self-care (01) | DRG 690 ==
LOC: ED 18:22 → EDIP 20:45 → 3NW 21:55
PROVIDERS: ADMIT Hospitalist; ATTEND Hospitalist
DX: N13.6 Pyonephrosis (principal); N17.0 Acute kidney failure with tubular necrosis; F17.203 Nicotine dependence unspecified, with withdrawal; E11.42 Type 2 diabetes mellitus with diabetic polyneuropathy; I16.0 Hypertensive urgency; E11.65 Type 2 diabetes mellitus with hyperglycemia; I10 Essential (primary) hypertension; Z98.1 Arthrodesis status; B96.20 Unspecified Escherichia coli [E. coli] as the cause of diseases classified elsewhere; Z88.0 Allergy status to penicillin; Z79.4 Long term (current) use of insulin
CPT/HCPCS: 36415; 74176; 80048; 80053; 81001; 82010; 82803; 82962; 83605; 83690; 83735; 85025; 87040; 87077; 87086; 87186; 96361; 96365; 96372; 96375; 96376; J0696; J2185; J2405; J3370; Q0162; J1815; J7030; J7050; S0028

== ENCOUNTER 2018-02-05 15:33 | Emergency (ER) | payer MEDICAID ==
[~2018-02-05] VITALS: Ht 175.3 cm; Wt 78.2 kg
[~2018-02-05 15:33] MED LIST changes: +CEFD300C37 PO; +TAMS-11 PO; +VARE1TAB20 PO
[2018-02-05] MEDS ORDERED: ONDANSETRON 2MG/ML, 2ML IVPush ONE (16:00)
[2018-02-05] MEDS ORDERED: SODIUM CHLORIDE FLUSH 10ML SYR IVF ONE (16:00)
[2018-02-05] MEDS ORDERED: SODIUM CHLORIDE 0.9% 1,000ML IVBOLUS ONE (16:00)
[2018-02-05 16:02] LABS: MICROSCOPIC AUTO
[2018-02-05 16:04] LABS: CULTURE INDICATED? YES
[2018-02-05 16:09] LABS: BASOPHILS # (AUTO) 0.04 x10^3/uL (0-0.1); BASOPHILS % (AUTO) 1 % (0-1); EOSINOPHILS # (AUTO) 0.16 x10^3/uL (0-0.4); EOSINOPHILS % (AUTO) 2 % (1-7); LYMPHOCYTES # (AUTO) 2.54 x10^3/uL (1-3.4); LYMPHOCYTES % (AUTO) 31 % (22-44); MD NO; MEAN CORPUSCULAR HEMOGLOBIN 28.1 pg (27.5-34.5); MEAN CORPUSCULAR HGB CONC 33.8 g/dL (33.2-36.2); MEAN CORPUSCULAR VOLUME 83.1 fL (81-97); MEAN PLATELET VOLUME 7.1 fL (7.4-10.4); MONOCYTES # (AUTO) 0.47 x10^3/uL (0.2-0.8); MONOCYTES % (AUTO) 6 % (2-9); NEUTROPHILS # (AUTO) 4.86 x10^3/uL (1.8-6.8); NEUTROPHILS % (AUTO) 60 % (42-75); PLATELET COUNT 572 x10^3/uL (130-400); RED BLOOD COUNT 4.57 x10^6/uL (4.38-5.82); RED CELL DISTRIBUTION WIDTH 13.4 % (9.4-14.8)
[2018-02-05 16:13] LABS: ALANINE AMINOTRANSFERASE 12 U/L (12-78); ALBUMIN 3.2 g/dL (3.4-5.0); ANION GAP 8 mmol/L (5-15); CALCIUM 9.1 mg/dL (8.5-10.1); CHLORIDE 99 mmol/L (98-107); CREATININE 1.16 mg/dL (0.7-1.3)
[2018-02-05 16:15] LABS: ALKALINE PHOSPHATASE 105 U/L (45-117); BILIRUBIN,TOTAL 0.2 mg/dL (0.2-1.0); TOTAL PROTEIN 7.7 g/dL (6.4-8.2)
[2018-02-05] MEDS ORDERED: ONDANSETRON 2MG/ML, 2ML ONE (17:13)
[2018-02-05] MEDS ORDERED: CEFTRIAXONE PMX 1GM/50ML 50 ML IV ONE (18:30)
[2018-02-05] MEDS ORDERED: CEFTRIAXONE PMX 1GM/50ML 50 ML ONE (18:44)
[2018-02-05] MEDS ORDERED: OMNIPAQUE 350 MG/ML, 100ML BOTTLE ONE (19:31)
[2018-02-05 19:33] VITALS: BP 144/77
== END 2018-02-05 20:41 | disposition home or self-care (01) ==
LOC: ED 18:43
DX: N30.01 Acute cystitis with hematuria (principal); F17.210 Nicotine dependence, cigarettes, uncomplicated; Z88.0 Allergy status to penicillin; E11.9 Type 2 diabetes mellitus without complications
CPT/HCPCS: 36415; 74177; 80053; 81001; 83690; 85025; 87086; 96361; 96365; 96375; 99285; J0696; J2405; J7030; Q9967

== ENCOUNTER 2018-04-01 11:07 | Emergency (ER) | payer MEDICAID ==
[~2018-04-01] VITALS: Ht 175.3 cm; Wt 82.1 kg
[2018-04-01 11:08] VITALS: BP 132/69
[2018-04-01] MEDS ORDERED: METHOCARBAMOL 750 MG TABLET ONE (11:55)
[2018-04-01] MEDS ORDERED: KETOROLAC 30 MG/1 ML ONE (11:55)
[2018-04-01] MEDS ORDERED: METHOCARBAMOL 750 MG TABLET PO ONE (12:00)
[2018-04-01] MEDS ORDERED: KETOROLAC 30 MG/1 ML IM ONE (12:00)
== END 2018-04-01 12:40 | disposition home or self-care (01) ==
LOC: ED 12:34
DX: S39.012A Strain of muscle, fascia and tendon of lower back, initial encounter (principal); M51.36 Other intervertebral disc degeneration, lumbar region; E11.9 Type 2 diabetes mellitus without complications; F17.200 Nicotine dependence, unspecified, uncomplicated; V89.2XXA Person injured in unspecified motor-vehicle accident, traffic, initial encounter; Y93.89 Activity, other specified; Y92.89 Other specified places as the place of occurrence of the external cause; Y99.8 Other external cause status
CPT/HCPCS: 72110; 96372; 99284; J1885

== ENCOUNTER → 2018-05-09 | Outpatient (CLI) | payer MEDICAID | END | disposition home or self-care (01) | LOC: CVU 12:07 | PROVIDERS: ATTEND Family Medicine | DX: E11.9 Type 2 diabetes mellitus without complications (principal); F17.210 Nicotine dependence, cigarettes, uncomplicated; M79.662 Pain in left lower leg; M79.661 Pain in right lower leg; R20.2 Paresthesia of skin | CPT/HCPCS: 93922 ==

== ENCOUNTER 2018-07-03 08:46 | Emergency (ER) | payer MEDICAID ==
[~2018-07-03] VITALS: Ht 175.3 cm; Wt 81.8 kg
[2018-07-03] MEDS ORDERED: DIAZEPAM 5 MG TABLET ONE (09:34)
[2018-07-03] MEDS ORDERED: HYDROmorphone 2 MG/ML, 1ML ONE (09:34)
[2018-07-03] MEDS ORDERED: ONDANSETRON ODT 4 MG ONE (09:34)
[2018-07-03] MEDS ORDERED: KETOROLAC 30 MG/1 ML ONE (09:34)
[2018-07-03 09:44] VITALS: BP 102/62
[2018-07-03] MEDS ORDERED: KETOROLAC 30 MG/1 ML IM ONE (10:00)
[2018-07-03] MEDS ORDERED: HYDROmorphone 2 MG/ML, 1ML IM ONE (10:00)
[2018-07-03] MEDS ORDERED: ONDANSETRON ODT 4 MG PO ONE (10:00)
[2018-07-03] MEDS ORDERED: DIAZEPAM 5 MG TABLET PO ONE (10:00)
[2018-07-03 11:48] LABS: MICROSCOPIC INDICATED
[2018-07-03 11:59] LABS: CULTURE INDICATED? NO
== END 2018-07-03 12:17 | disposition home or self-care (01) ==
LOC: ED 11:04
DX: M54.5 Low back pain (principal); F17.200 Nicotine dependence, unspecified, uncomplicated
CPT/HCPCS: 81001; 96372; 99284; J1170; J1885; Q0162

== ENCOUNTER 2018-12-10 17:34 | Emergency (ER) | payer MEDICAID ==
[~2018-12-10] VITALS: Ht 175.3 cm; Wt 86.6 kg
[2018-12-10 18:02] VITALS: BP 123/72
[2018-12-10] MEDS ORDERED: BACITRACIN ZINC OINT 500U/GM, 0.9 GM ONE (18:43)
[2018-12-10] MEDS ORDERED: ONDANSETRON ODT 4 MG ONE (18:43)
[2018-12-10] MEDS ORDERED: HYDROcodone/APAP 5/325 TABLET ONE (18:43)
[2018-12-10] MEDS ORDERED: HYDROcodone/APAP 5/325 TABLET PO ONE (19:00)
[2018-12-10] MEDS ORDERED: ONDANSETRON ODT 4 MG PO ONE (19:00)
== END 2018-12-10 18:51 | disposition home or self-care (01) ==
LOC: ED 18:40
DX: L03.811 Cellulitis of head [any part, except face] (principal); F17.210 Nicotine dependence, cigarettes, uncomplicated; E11.649 Type 2 diabetes mellitus with hypoglycemia without coma; Z88.0 Allergy status to penicillin
CPT/HCPCS: 99283; Q0162

== ENCOUNTER → 2019-02-18 | Outpatient (CLI) | payer MEDICAID ==
[~2019-02-18] MED LIST changes: +OMNIPAQUE 350 MG/ML, 150 ML BOTTLE ONE
== END | disposition home or self-care (01) ==
LOC: CFH 14:35
PROVIDERS: ATTEND Physician Assistant
DX: R31.9 Hematuria, unspecified (principal)
CPT/HCPCS: 74178; 82565; Q9967

== ENCOUNTER 2019-02-24 08:13 | Observation (INO) | payer MEDICAID ==
[~2019-02-24] VITALS: Ht 175.3 cm; Wt 88.4 kg
[~2019-02-24 08:13] MED LIST changes: -OMNIPAQUE 350 MG/ML, 150 ML BOTTLE ONE
[2019-02-24] MEDS ORDERED: INSU100I13 SC (08:49)
[2019-02-24] MEDS ORDERED: LISI-167 PO (08:49)
[2019-02-24] MEDS ORDERED: GLYB5TAB3 PO (08:49)
[2019-02-24] MEDS ORDERED: SODIUM CHLORIDE 0.9% 1,000ML IVBOLUS ONE (09:00)
[2019-02-24] MEDS ORDERED: SODIUM CHLORIDE FLUSH 10ML SYR IVF ONE (09:00)
[2019-02-24 09:09] LABS: BASOPHILS # (AUTO) 0.02 x10^3/uL (0-0.1); BASOPHILS % (AUTO) 0 % (0-1); EOSINOPHILS # (AUTO) 0.13 x10^3/uL (0-0.4); EOSINOPHILS % (AUTO) 2 % (1-7); LYMPHOCYTES # (AUTO) 1.58 x10^3/uL (1-3.4); LYMPHOCYTES % (AUTO) 21 % (22-44); MD NO; MEAN CORPUSCULAR HEMOGLOBIN 29.7 pg (27.5-34.5); MEAN CORPUSCULAR HGB CONC 33.8 g/dL (33.2-36.2); MEAN CORPUSCULAR VOLUME 88.1 fL (81-97); MEAN PLATELET VOLUME 7.8 fL (7.4-10.4); MONOCYTES # (AUTO) 0.42 x10^3/uL (0.2-0.8); MONOCYTES % (AUTO) 6 % (2-9); NEUTROPHILS # (AUTO) 5.55 x10^3/uL (1.8-6.8); NEUTROPHILS % (AUTO) 72 % (42-75); PLATELET COUNT 242 x10^3/uL (130-400); RED BLOOD COUNT 4.23 x10^6/uL (4.38-5.82); RED CELL DISTRIBUTION WIDTH 12.9 % (9.4-14.8)
[2019-02-24 09:17] LABS: ALBUMIN 3.7 g/dL (3.4-5.0); ANION GAP 6 mmol/L (5-15); CHLORIDE 107 mmol/L (98-107); CREATININE 1.68 mg/dL (0.7-1.3)
[2019-02-24 09:22] LABS: TROPONIN I < 0.015 ng/mL (0.000-0.045)
[2019-02-24 11:57] LABS: MICROSCOPIC AUTO
[2019-02-24 12:01] LABS: CULTURE INDICATED? NO
[2019-02-24] MEDS ORDERED: SODIUM CHLORIDE 0.9% 1,000 ML IV SCH (12:46)
[2019-02-24] MEDS ORDERED: HEPARIN 5,000 UNITS/ML, 1ML SQ SCH (13:00)
[2019-02-24] MEDS ORDERED: DEXTROSE 4 GM TAB.CHEW PO PRN (13:00)
[2019-02-24] MEDS ORDERED: GLUCAGON 1 MG IM PRN (13:00)
[2019-02-24] MEDS ORDERED: ONDANSETRON 2MG/ML, 2ML IVPush PRN (13:00)
[2019-02-24] MEDS ORDERED: NICOTINE 21 MG/24 HR PATCH.TD24 TD SCH (13:00)
[2019-02-24] MEDS ORDERED: DEXTROSE 50%, 50ML SYRINGE IVPush PRN (13:00)
[2019-02-24] MEDS ORDERED: POLYETHYLENE GLYCOL 17 GM PACKET PO PRN (13:00)
[2019-02-24] MEDS ORDERED: hydrALAzine 20 MG/ML, 1ML IVPush PRN (13:00)
[2019-02-24] MEDS ORDERED: BISACODYL 10 MG SUPP PR PRN (13:00)
[2019-02-24] MEDS ORDERED: ACETAMINOPHEN 325 MG TABLET PO PRN (13:00)
[2019-02-24] MEDS ORDERED: ONDANSETRON ODT 4 MG PO PRN (13:00)
[2019-02-24 13:30] LABS: HEMOGLOBIN A1C 6.7 % (4.2-6.3); THYROID STIMULATING HORMONE 2.9 mIU/L (0.358-3.740)
[2019-02-24] MEDS ORDERED: GADOBUTROL 7.5 MMOL/7.5 ML PFS ONE (13:39)
[2019-02-24] MEDS ORDERED: NICOTINE 21 MG/24 HR PATCH.TD24 ONE (13:50)
[2019-02-24] MEDS ORDERED: HEPARIN 5,000 UNITS/ML, 1ML ONE (13:50)
[2019-02-24] MEDS ORDERED: GABAPENTIN 300 MG CAPSULE PO SCH (16:00)
[2019-02-24] MEDS ORDERED: INSULIN LISPRO 100 UNITS/ML, PEN SQ-INSULIN SCH (16:00)
[2019-02-24 16:19] VITALS: BP 135/76
[2019-02-24] MEDS ORDERED: GABA600T PO (16:38)
[2019-02-24] MEDS ORDERED: SODIUM CHLORIDE FLUSH 10ML SYR IVF SCH (21:00)
[2019-02-24] MEDS ORDERED: DOCUSATE 100 MG CAPSULE PO SCH (21:00)
[2019-02-25] MEDS ORDERED: TAMSULOSIN 0.4 MG CAP.ER.24H PO SCH (09:00)
== END 2019-02-24 19:48 | disposition left against medical advice (07) ==
LOC: ED 08:56 → INTOOBSV 09:58 → EDIP 09:58 → ICU 16:05
PROVIDERS: ADMIT Internal Medicine; ATTEND Internal Medicine
DX: R55 Syncope and collapse (principal); N17.9 Acute kidney failure, unspecified; E11.40 Type 2 diabetes mellitus with diabetic neuropathy, unspecified; E11.649 Type 2 diabetes mellitus with hypoglycemia without coma; G89.29 Other chronic pain; I50.9 Heart failure, unspecified; G93.40 Encephalopathy, unspecified; I11.0 Hypertensive heart disease with heart failure; K21.9 Gastro-esophageal reflux disease without esophagitis; K59.09 Other constipation; Z79.4 Long term (current) use of insulin; Z87.891 Personal history of nicotine dependence
CPT/HCPCS: 36415; 70553; 71045; 80048; 81001; 82040; 82962; 83036; 83735; 83880; 84100; 84443; 84484; 85025; 87081; 93005; 96360; 96361; 96372; 99284; A9585; G0378; J1644; J7030

== ENCOUNTER → 2019-03-17 | Outpatient (CLI) | payer MEDICAID ==
[~2019-03-17] MED LIST changes: +GABA600T PO; +GLYB5TAB3 PO; +INSU100I13 SC; +LISI-167 PO
== END | disposition home or self-care (01) ==
LOC: RAD 07:44
PROVIDERS: ATTEND Physician Assistant Surgical
DX: S33.110A Subluxation of L1/L2 lumbar vertebra, initial encounter (principal); M41.86 Other forms of scoliosis, lumbar region; M48.061 Spinal stenosis, lumbar region without neurogenic claudication; X58.XXXA Exposure to other specified factors, initial encounter; Y93.9 Activity, unspecified; Y92.89 Other specified places as the place of occurrence of the external cause; Y99.8 Other external cause status
CPT/HCPCS: 72050; 72110

== ENCOUNTER 2019-09-19 21:31 | Inpatient (IN) | payer MEDICAID ==
[~2019-09-19] VITALS: Ht 177.8 cm; Wt 88.2 kg
[~2019-09-19 21:31] MED LIST changes: +ATOR10TA9 PO; +EB-N5 PO; +HYDR-3237 PO; +HYDR-3241 PO; +LOSA25TA25 PO; +SUCR1TAB PO
--- NOTE | 2019-09-19 21:46 | NUR ---
BIB [facility]. HYPOGLYCEMIA EPISODE. GLUCOSE BY [facility] 33, THEN 96 AFTER D10. PT HAS FULL BODY TREMORS STARTING TODAY, UNABLE TO WALK/STAND. 2-3 SYNCOPAL EPISODES OVER LAST 3 WEEKS. CONNECTED TO ALL MONITORING. EKG DONE. CALL LIGHT IN REACH.
--- NOTE | 2019-09-19 21:52 | NUR ---
md informed of low blood glucose, pt dropping despite 25g of d5 from ems. Pt per md to have food. pt given simple carbs ross crackers and peanut butter. pt drank 3 orange juices.
[2019-09-19 22:02] LABS: BASOPHILS # (AUTO) 0.03 x10^3/uL (0-0.1); BASOPHILS % (AUTO) 0 % (0-1); EOSINOPHILS % (AUTO) 0 % (1-7); LYMPHOCYTES # (AUTO) 0.71 x10^3/uL (1-3.4); LYMPHOCYTES % (AUTO) 5 % (22-44); MD NO; MEAN CORPUSCULAR HEMOGLOBIN 31.2 pg (27.5-34.5); MEAN CORPUSCULAR HGB CONC 33.9 g/dL (33.2-36.2); MEAN CORPUSCULAR VOLUME 92.2 fL (81-97); MEAN PLATELET VOLUME 7.3 fL (7.4-10.4); MONOCYTES # (AUTO) 0.72 x10^3/uL (0.2-0.8); MONOCYTES % (AUTO) 5 % (2-9); NEUTROPHILS # (AUTO) 14.18 x10^3/uL (1.8-6.8); NEUTROPHILS % (AUTO) 91 % (42-75); PLATELET COUNT 345 x10^3/uL (130-400); RED BLOOD COUNT 3.94 x10^6/uL (4.38-5.82); RED CELL DISTRIBUTION WIDTH 12.6 % (9.4-14.8)
--- NOTE | 2019-09-19 22:06 | NUR ---
PT TAKE TO CT.
[2019-09-19 22:15] LABS: ALANINE AMINOTRANSFERASE 22 U/L (12-78); ALBUMIN 3.5 g/dL (3.4-5.0); ANION GAP 7 mmol/L (5-15); CALCIUM 8.8 mg/dL (8.5-10.1); CHLORIDE 91 mmol/L (98-107); CREATININE 2.08 mg/dL (0.7-1.3)
[2019-09-19 22:19] LABS: ALKALINE PHOSPHATASE 71 U/L (45-117); BILIRUBIN,TOTAL 0.8 mg/dL (0.2-1.0); TOTAL PROTEIN 7.2 g/dL (6.4-8.2); TROPONIN I < 0.015 ng/mL (0.000-0.045)
--- NOTE | 2019-09-19 22:29 | NUR ---
PT RETURNED FROM CT. BS 77. PT RESTING ON NAVI. PALMER.
--- NOTE | 2019-09-19 22:46 | NUR ---
NOTIFIED OF BS77. CONTINUE TO MONITOR, PER . PT ATTEMPTED TO URINATE, BUT COULD NOT AT THIS TIME. MD AWARE. Addendum: 09/19/19 at 2250 by HRUSSELLAyanna MD NOTIFIED PT UNABLE TO URINATE AT THIS TIME, AND ALL OTHER RESULTS ARE BACK AT THIS TIME.
--- NOTE | 2019-09-19 23:45 | NUR ---
REPORT GIVEN TO BONNIE JARA. HOSPITALIST AT BEDSIDE.
[2019-09-20] VITALS: BP 88/58
[2019-09-20] MEDS: D5%-0.45% NACL 1,000 ML IV SCH ×3 (00:27→15:42)
[2019-09-20] MEDS: NICOTINE 21 MG/24 HR PATCH.TD24 TD SCH (00:27)
[2019-09-20] MEDS: HEPARIN 5,000 UNITS/ML, 1ML SQ SCH ×3 (00:27→15:42)
[2019-09-20] MEDS ORDERED: LABETALOL 5MG/ML, 20ML IVPush PRN (00:30)
[2019-09-20] MEDS ORDERED: DOCUSATE 100 MG CAPSULE PO PRN (00:30)
[2019-09-20] MEDS ORDERED: ONDANSETRON ODT 4 MG PO PRN (00:30)
[2019-09-20] MEDS ORDERED: TEMAZEPAM 15 MG CAPSULE PO PRN (00:30)
[2019-09-20 00:57] LABS: HEMOGLOBIN A1C 6.3 % (4.2-6.3)
[2019-09-20 02:04] VITALS: BP 95/60
[2019-09-20 02:53] LABS: MICROSCOPIC AUTO
[2019-09-20 02:54] LABS: CULTURE INDICATED? NO
[2019-09-20 03:07] LABS: AMPHETAMINE SCREEN, URINE Negative (Negative); BARBITURATE SCREEN, URINE Negative (Negative); BENZODIAZEPINE SCREEN, URINE Negative (Negative); CANNABINOID SCREEN, URINE Negative (Negative); COCAINE SCREEN, URINE Negative (Negative); METHADONE SCREEN, URINE Negative (Negative); OPIATE SCREEN, URINE Positive (Negative)
[2019-09-20 04:42] LABS: TROPONIN I < 0.015 ng/mL (0.000-0.045)
[2019-09-20] MEDS ORDERED: INSULIN LISPRO 100 UNITS/ML, PEN SQ-INSULIN SCH (07:30)
[2019-09-20 08:08] VITALS: BP 97/64
[2019-09-20] MEDS: SUCRALFATE 1 GM TABLET PO SCH (08:47)
[2019-09-20] MEDS: TAMSULOSIN 0.4 MG CAP.ER.24H PO SCH (08:47)
[2019-09-20 10:45] LABS: TROPONIN I < 0.015 ng/mL (0.000-0.045)
[2019-09-20] MEDS: INSULIN LISPRO 100 UNITS/ML, PEN SQ-INSULIN SCH ×4 (11:00→23:00)
[2019-09-20 11:07] VITALS: BP 153/97
[2019-09-20 13:37] VITALS: BP 109/69
[2019-09-20] MEDS: ACETAMINOPHEN 325 MG TABLET PO PRN (16:30)
[2019-09-20 20:22] VITALS: BP 100/65
[2019-09-20] MEDS: ATORVASTATIN 10 MG TABLET PO SCH (20:23)
[2019-09-21] MEDS: ACETAMINOPHEN 325 MG TABLET PO PRN ×2 (00:09→14:50)
[2019-09-21] MEDS: D5%-0.45% NACL 1,000 ML IV SCH (00:09)
[2019-09-21] MEDS: NICOTINE 21 MG/24 HR PATCH.TD24 TD SCH ×2 (00:11→23:40)
[2019-09-21 00:22] VITALS: BP 116/73
[2019-09-21] MEDS: INSULIN LISPRO 100 UNITS/ML, PEN SQ-INSULIN SCH ×6 (03:00→23:40)
[2019-09-21 05:10] LABS: ALBUMIN 2.7 g/dL (3.4-5.0); ANION GAP 4 mmol/L (5-15); CALCIUM 8.4 mg/dL (8.5-10.1); CHLORIDE 95 mmol/L (98-107)
[2019-09-21 05:15] LABS: ALANINE AMINOTRANSFERASE 18 U/L (12-78); ALKALINE PHOSPHATASE 62 U/L (45-117); BILIRUBIN,TOTAL 0.5 mg/dL (0.2-1.0); TOTAL PROTEIN 6.2 g/dL (6.4-8.2)
[2019-09-21 06:13] LABS: BASOPHILS # (AUTO) 0.04 x10^3/uL (0-0.1); BASOPHILS % (AUTO) 0 % (0-1); EOSINOPHILS # (AUTO) 0.07 x10^3/uL (0-0.4); EOSINOPHILS % (AUTO) 1 % (1-7); LYMPHOCYTES # (AUTO) 1.15 x10^3/uL (1-3.4); LYMPHOCYTES % (AUTO) 14 % (22-44); MD NO; MEAN CORPUSCULAR HEMOGLOBIN 31.1 pg (27.5-34.5); MEAN CORPUSCULAR HGB CONC 33.9 g/dL (33.2-36.2); MEAN CORPUSCULAR VOLUME 91.8 fL (81-97); MEAN PLATELET VOLUME 7.1 fL (7.4-10.4); MONOCYTES # (AUTO) 0.65 x10^3/uL (0.2-0.8); MONOCYTES % (AUTO) 8 % (2-9); NEUTROPHILS # (AUTO) 6.61 x10^3/uL (1.8-6.8); NEUTROPHILS % (AUTO) 78 % (42-75); PLATELET COUNT 272 x10^3/uL (130-400); RED BLOOD COUNT 3.34 x10^6/uL (4.38-5.82); RED CELL DISTRIBUTION WIDTH 12.9 % (9.4-14.8)
[2019-09-21 07:09] VITALS: BP 113/71
[2019-09-21] MEDS: SODIUM CHLORIDE 0.9% 1,000 ML IV SCH ×3 (09:04→23:41)
[2019-09-21] MEDS: SUCRALFATE 1 GM TABLET PO SCH (09:40)
[2019-09-21] MEDS: TAMSULOSIN 0.4 MG CAP.ER.24H PO SCH (09:40)
[2019-09-21] MEDS: HEPARIN 5,000 UNITS/ML, 1ML SQ SCH ×3 (09:40→23:41)
[2019-09-21 12:50] VITALS: BP 144/81
[2019-09-21] MEDS: LIDODERM 5% PATCH TD PRN ×2 (14:51→16:08)
[2019-09-21 19:06] VITALS: BP 128/74
[2019-09-21] MEDS: ATORVASTATIN 10 MG TABLET PO SCH (19:47)
[2019-09-21] MEDS ORDERED: INSULIN GLARGINE 100 UNITS/ML, PEN SQ-INSULIN SCH (21:00)
[2019-09-22 01:03] VITALS: BP 122/73
[2019-09-22] MEDS: INSULIN LISPRO 100 UNITS/ML, PEN SQ-INSULIN SCH ×5 (03:23→19:00)
[2019-09-22 05:04] LABS: ALBUMIN 2.6 g/dL (3.4-5.0); ANION GAP 6 mmol/L (5-15); CALCIUM 8.5 mg/dL (8.5-10.1); CHLORIDE 105 mmol/L (98-107)
[2019-09-22 05:08] LABS: ALANINE AMINOTRANSFERASE 18 U/L (12-78); ALKALINE PHOSPHATASE 70 U/L (45-117); BILIRUBIN,TOTAL 0.4 mg/dL (0.2-1.0); TOTAL PROTEIN 6.5 g/dL (6.4-8.2)
[2019-09-22 06:58] VITALS: BP 151/73
[2019-09-22] MEDS: SODIUM CHLORIDE 0.9% 1,000 ML IV SCH ×3 (08:13→22:06)
[2019-09-22] MEDS: CYCLOBENZAPRINE 10 MG TABLET PO SCH ×3 (08:14→21:27)
[2019-09-22] MEDS: INSULIN GLARGINE 100 UNITS/ML, PEN SQ-INSULIN SCH ×2 (08:14→20:01)
[2019-09-22] MEDS: SUCRALFATE 1 GM TABLET PO SCH (08:14)
[2019-09-22] MEDS: HEPARIN 5,000 UNITS/ML, 1ML SQ SCH ×2 (08:14→15:48)
[2019-09-22] MEDS: TAMSULOSIN 0.4 MG CAP.ER.24H PO SCH (08:14)
[2019-09-22] MEDS: AMLODIPINE 5 MG TABLET PO SCH ×2 (08:14→19:59)
[2019-09-22 13:05] VITALS: BP 103/63
[2019-09-22 19:05] VITALS: BP 149/82
[2019-09-22] MEDS: ATORVASTATIN 10 MG TABLET PO SCH (19:59)
[2019-09-23] MEDS ORDERED: PROMETHAZINE 25 MG/ML, 1ML IM ONE
[2019-09-23] MEDS: HEPARIN 5,000 UNITS/ML, 1ML SQ SCH ×2 (00:14→07:30)
[2019-09-23] MEDS: INSULIN LISPRO 100 UNITS/ML, PEN SQ-INSULIN SCH ×3 (00:14→07:00)
[2019-09-23] MEDS: NICOTINE 21 MG/24 HR PATCH.TD24 TD SCH (00:14)
[2019-09-23 04:09] VITALS: BP 149/76
[2019-09-23 05:05] LABS: ALBUMIN 2.7 g/dL (3.4-5.0); ANION GAP 9 mmol/L (5-15); CALCIUM 9.1 mg/dL (8.5-10.1); CHLORIDE 106 mmol/L (98-107)
[2019-09-23 05:10] LABS: ALANINE AMINOTRANSFERASE 15 U/L (12-78); ALKALINE PHOSPHATASE 62 U/L (45-117); BILIRUBIN,TOTAL 0.5 mg/dL (0.2-1.0); CREATININE 1.45 mg/dL (0.7-1.3); TOTAL PROTEIN 6.4 g/dL (6.4-8.2)
[2019-09-23] MEDS: SODIUM CHLORIDE 0.9% 1,000 ML IV SCH (06:04)
[2019-09-23 07:16] VITALS: BP 146/78
[2019-09-23] MEDS ORDERED: INSULIN GLARGINE 100 UNITS/ML, PEN SQ-INSULIN SCH (09:00)
[2019-09-23] MEDS: SUCRALFATE 1 GM TABLET PO SCH (09:56)
[2019-09-23] MEDS: AMLODIPINE 5 MG TABLET PO SCH (09:56)
[2019-09-23] MEDS: CYCLOBENZAPRINE 10 MG TABLET PO SCH (09:57)
[2019-09-23] MEDS: TAMSULOSIN 0.4 MG CAP.ER.24H PO SCH (09:57)
[2019-09-23] MEDS ORDERED: INSU100I11 SQ-INSULIN (10:00)
[2019-09-23] MEDS ORDERED: INSU100I13 SQ-INSULIN (10:00)
[2019-09-23] MEDS ORDERED: AMLO-150 PO (10:00)
== END 2019-09-23 10:24 | disposition left against medical advice (07) | DRG 469 ==
LOC: ED 22:46 → EDIP 23:22 → 3N 09-20 00:11
PROVIDERS: ADMIT Internal Medicine; ATTEND Internal Medicine
PROC: 0T9B70Z Drainage of Bladder with Drainage Device, Via Natural or Artificial Opening (ICD-10-PCS; principal; 2019-09-20)
DX: N17.0 Acute kidney failure with tubular necrosis (principal); G93.41 Metabolic encephalopathy; E10.22 Type 1 diabetes mellitus with diabetic chronic kidney disease; E10.40 Type 1 diabetes mellitus with diabetic neuropathy, unspecified; E10.649 Type 1 diabetes mellitus with hypoglycemia without coma; E87.1 Hypo-osmolality and hyponatremia; D64.9 Anemia, unspecified; S40.812A Abrasion of left upper arm, initial encounter; D72.829 Elevated white blood cell count, unspecified; S82.455A Nondisplaced comminuted fracture of shaft of left fibula, initial encounter for closed fracture; F17.210 Nicotine dependence, cigarettes, uncomplicated; G89.29 Other chronic pain; I50.9 Heart failure, unspecified; K21.9 Gastro-esophageal reflux disease without esophagitis; N18.9 Chronic kidney disease, unspecified; M19.011 Primary osteoarthritis, right shoulder; M77.9 Enthesopathy, unspecified; R33.9 Retention of urine, unspecified; W18.30XA Fall on same level, unspecified, initial encounter; S90.415A Abrasion, left lesser toe(s), initial encounter; S90.414A Abrasion, right lesser toe(s), initial encounter; Y93.89 Activity, other specified; Y92.048 Other place in boarding-house as the place of occurrence of the external cause; Y99.8 Other external cause status; Z98.1 Arthrodesis status
CPT/HCPCS: 36415; 70450; 80053; 80307; 81001; 82607; 82947; 82962; 83036; 84443; 84484; 85025; 93005; 93306; G0378; J1644; J2550; Q0162; J1815; J7030

== ENCOUNTER 2019-09-27 17:24 | Emergency (ER) | payer MEDICAID ==
[~2019-09-27] VITALS: Ht 175.3 cm; Wt 83.0 kg
[~2019-09-27 17:24] MED LIST changes: +AMLO-150 PO; +INSU100I11 SQ-INSULIN; +INSU100I13 SQ-INSULIN
[2019-09-27 17:26] VITALS: BP 107/63
--- NOTE | 2019-09-27 18:45 | NUR ---
na x 1
--- NOTE | 2019-09-27 19:15 | NUR ---
NA X 2
--- NOTE | 2019-09-27 20:00 | NUR ---
NA X 3
== END 2019-09-27 20:15 | disposition home or self-care (01) ==
LOC: ED 20:09
DX: M25.572 Pain in left ankle and joints of left foot (principal); Z53.21 Procedure and treatment not carried out due to patient leaving prior to being seen by health care provider
CPT/HCPCS: 93005; 99283

== ENCOUNTER 2020-02-11 08:41 | Emergency (ER) | payer MEDICAID ==
[~2020-02-11] VITALS: Ht 175.3 cm; Wt 81.0 kg
--- NOTE | 2020-02-11 08:57 | NUR ---
PT BIB [facility]. PT BROUGHT FROM HOME WITH BG OF 18. PT ALERT ALTHOUGH COMBATIVE, PT GIVEN IM VERSED PER EMS, THEN ABLE TO GIVE PO GLUCOSE, BG UP TO 22, ADDITIONAL DOSE OF PO GLUCOSE GIVEN, BG THEN 28 PER EMS. PIV THEN INITIATED AND D10 ADMIN. BG 88 ON ARRIVAL. PT ALERT AND ORIENTED X4 ON ARRIVAL, PT COOPERATIVE AND RESPONSIVE. FSBG 119. 250CC D10 ADMIN PER EMS. ERMD IN TO EVAL PT, PT TO ALL MONITORING EQUIP
[2020-02-11 09:16] LABS: BASOPHILS # (AUTO) 0.03 x10^3/uL (0-0.1); BASOPHILS % (AUTO) 0 % (0-1); EOSINOPHILS # (AUTO) 0.09 x10^3/uL (0-0.4); EOSINOPHILS % (AUTO) 1 % (1-7); LYMPHOCYTES % (AUTO) 21 % (22-44); MD NO; MEAN CORPUSCULAR HEMOGLOBIN 29.2 pg (27.5-34.5); MEAN CORPUSCULAR HGB CONC 33.2 g/dL (33.2-36.2); MEAN CORPUSCULAR VOLUME 87.7 fL (81-97); MEAN PLATELET VOLUME 6.6 fL (7.4-10.4); MONOCYTES % (AUTO) 7 % (2-9); NEUTROPHILS # (AUTO) 5.47 x10^3/uL (1.8-6.8); NEUTROPHILS % (AUTO) 71 % (42-75); PLATELET COUNT 458 x10^3/uL (130-400); RED BLOOD COUNT 4.35 x10^6/uL (4.38-5.82); RED CELL DISTRIBUTION WIDTH 13.2 % (9.4-14.8)
[2020-02-11 09:26] LABS: ALANINE AMINOTRANSFERASE 16 U/L (12-78); ALBUMIN 3.6 g/dL (3.4-5.0); ANION GAP 7 mmol/L (5-15); CALCIUM 8.9 mg/dL (8.5-10.1); CHLORIDE 109 mmol/L (98-107); CREATININE 1.45 mg/dL (0.7-1.3)
[2020-02-11 09:30] LABS: ALKALINE PHOSPHATASE 86 U/L (45-117); BILIRUBIN,TOTAL 0.4 mg/dL (0.2-1.0); TOTAL PROTEIN 7.8 g/dL (6.4-8.2); TROPONIN I < 0.015 ng/mL (0.000-0.045)
[2020-02-11] MEDS ORDERED: DEXTROSE 10% 1,000 ML IV SCH (10:00)
[2020-02-11] MEDS ORDERED: SODIUM CHLORIDE FLUSH 10ML SYR IVF ONE (10:00)
--- NOTE | 2020-02-11 10:00 | NUR ---
PT GIVEN WATER AND PROVIDED WITH FOOD TRAY, PER JOHN FLORES.
[2020-02-11 10:08] LABS: CULTURE INDICATED? NO; MICROSCOPIC AUTO
--- NOTE | 2020-02-11 10:55 | NUR ---
PT RESTING ON NINA HODGES. FSBG RECHECKED 192. PT RUNNING D10. ANTICIPATE ADMIT, DISCUSSED POC. PT DOES NOT HAVE LIST OF MEDICATIONS, HE IS TO HAVE BRING IN LIST TO COMPLETE MED REC
[2020-02-11 11:25] VITALS: BP 142/76
== END 2020-02-11 12:04 | disposition home or self-care (01) ==
LOC: ED 10:03
DX: R41.0 Disorientation, unspecified (principal); E11.649 Type 2 diabetes mellitus with hypoglycemia without coma; F17.200 Nicotine dependence, unspecified, uncomplicated
CPT/HCPCS: 36415; 71045; 80053; 81001; 82962; 84484; 85025; 93005; 96360; 96361; 99285